=== PATIENT | female | born 1990 | race Caucasian/White ===

== ENCOUNTER 2016-08-23 11:41 | Emergency (ER) | payer SELFPAY ==
[2016-08-23 12:14] LABS: BASOPHILS 0.4 % (0.0-2.0); EOSINOPHILS 0.8 % (0.0-6.0); EOSINOPHILS# 0.1 X 10^3uL (0.0-0.4); HEMATOCRIT 44.8 % (36.0-48.0); HEMOGLOBIN 15.4 g/dL (12.0-16.0); LYMPHOCYTES 20.9 % (20.0-40.0); LYMPHOCYTES# 1.5 X 10^3uL (0.8-3.8); MEAN CELL VOLUME 88.9 fL (80.0-100.0); MEAN CORPUS. HGB CONCENTRATION 34.5 g/dL (32.0-36.0); MEAN CORPUSCULAR HEMOGLOBIN 30.6 pg (29.0-35.0); MEAN PLATELET VOLUME 6.8 fL (7.4-10.4); MONOCYTES# 0.3 X 10^3uL (0.2-1.0); NEUTROPHILS 73.9 % (54.0-75.0); NEUTROPHILS# 5.3 X 10^3uL (2.6-6.7); PLATELET COUNT 295 X 10^3uL (130-440); RED BLOOD COUNT 5.04 X 10^6uL (4.20-6.10); RED CELL DISTRIBUTION WIDTH 11.7 % (11.5-14.5); WHITE BLOOD COUNT 7.2 X 10^3uL (3.9-10.7)
[2016-08-23 12:25] LABS: BLOOD UREA NITROGEN 7 mg/dL (7-17); CALCIUM 9.8 mg/dL (8.4-10.2); CHLORIDE 103 mmol/L (98-107); EST GLOMERULAR FILTRATION RATE > 60 mL/min; GLUCOSE 108 mg/dL (70-100); MAGNESIUM 2.2 mg/dL (1.6-2.3); SODIUM 143 mmol/L (137-145)
--- NOTE | 2016-08-23 12:27 | CT REPORT ---
HISTORY: History of seizure. COMPARISON: None. TECHNIQUE: Axial non-contrast images obtained from skull vertex through foramen magnum. Dose reduction technique was utilized. FINDINGS: There is no atrophy. There is no hemorrhage. There is no hydrocephalus. No mass lesion is identifi ed. Araiza white differentiation adequate, there is no infarction. No midline shift is identified. T he paranasal sinuses are clear. IMPRESSION: Normal head CT. Final Electronic Signature: This report was electronically signed by Mart Avalos MD, FACR on 2016 12:24 PM. iqra /
[2016-08-23 12:35] LABS: ETHYL ALCOHOL < 10 mg/dL (<10)
[2016-08-23] MEDS ORDERED: LEVETIRACETAM 500 MG TABLET PO ONE (13:15)
--- NOTE | 2016-08-23 13:16 | ER NURSING DOCUMENTATION ---
Nurse's Notes [facility] Name:Regine Guerrero Age:26 yrs Sex:Female :1990 Arrival Date:08/23/2016 Time:11:41 Bed6 Private MD: Diagnosis:New Onset Seizure Presentation: 08/23 11:43 Acuity: TANNER 3 rh 11:50 Presenting complaint: Presenting complaint: Patient states: PT states she had two rh seizures this AM first at 0930 and again at 1030 am. Both episodes were quick, lasting 30 or so seconds. Pt was confused after each event. Pt's witnessed the events. 12:09 Transition of care: Home. rh 12:09 Method Of Arrival: Private Vehicle Triage Assessment: 12:11 General: Appears in no apparent distress, Behavior is cooperative. Pain: Denies pain. rh EENT: Oral mucosa is dry. Neuro: Level of Consciousness is awake, alert, obeys commands, Oriented to person, place, time, event, Auto Body Repair Technician are equal bilaterally. Neuro: Seizure activity reported prior to arrival. Seizure lasted approximately 1 minutes. Cardiovascular: Capillary refill < 3 seconds Chest pain is denied. Respiratory: Airway is patent. GI: Denies nausea. : No deficits noted. Derm: Skin is intact, is healthy with good turgor, Skin is pink, warm & dry. Historical: - Allergies: SULFA (SULFONAMIDES); - Home Meds: 1. None - PMHx: None; - PSHx: None; - Tetanus: < 10 years. - Ebola Screening: : Patient negative for fever greater than or equal to 101.5 degrees Fahrenheit, and additional compatible Ebola Virus Disease symptoms. - Immunization history: Flu Vaccine None. - Social history: Smoking status: Patient states was never smoker of tobacco. Patient uses marijuana. Screenin:12 Infectious Disease Risk None. Abuse screen: Denies threats or abuse. Denies injuries rh from another. Nutritional screening: No deficits noted. Assessment: 12:12 See Triage Assessment done by same RN. rh Vital Signs: 11:50 BP 133 / 85; Pulse 98; Resp 16; Temp 98.0(O); Pulse Ox 97% on R/A; Weight 70.76 kg; rh Height 5 ft. 6 in. (167.64 cm); Pain 0/10; 12:30 BP 129 / 90; Pulse 92; Resp 14; Pulse Ox 96% on R/A; Pain 0/10; rh 13:14 BP 119 / 84; Pulse 89; Resp 15; Pulse Ox 98% on R/A; Pain 0/10; rh 11:50 Body Mass Index 25.18 (70.76 kg, 167.64 cm) ED Course: 11:42 Patient arrived in ED. 11:43 Stacey Chilel is Primary Nurse. 11:43 Triage completed. 11:51 Yifan Elias MD is Attending Physician. kendell 11:55 Notified ED Physician of patient's arrival and chief complaint. Dr. Elias notified. rh 12:00 Inserted peripheral IV: 20 gauge in right antecubital area and blood collected. rh 12:[address] dnn 12:12 Valuables Remains with patient Patient has correct armband on for positive rh identification. Bed in low position. Call light in reach. Side rails up X2. Seizure precautions initiated. close monitoring by staff. 12:19 Patient moved back from CT. dnn Administered Medications: 12:10 Drug: NS 0.9% 1000 ml; Route: IV; Rate: bolus; Site: right antecubital; rh 13:00 Follow up: IV Status: Completed infusion; IV Intake: 1000ml 13:03 Drug: Keppra 500 mg; Route: PO; la 13:07 Follow up: Response: No adverse reaction la Intake: 13:00 IV: 1000ml; Total: 1000ml. Outcome: 13:00 Discharge ordered by . 13:14 Discharged to home ambulatory, with significant other. 13:14 Condition: improved 13:14 Discharge Assessment: Patient awake, alert and oriented x 3. No cognitive and/or functional deficits noted. Patient verbalized understanding of disposition instructions. 13:14 Discharge instructions given to patient, significant other, Instructed on discharge instructions, follow up and referral plans. medication usage, Demonstrated understanding of instructions, medications, Prescriptions given X 1. 13:14 IV D/Saeid 13:15 Patient left the ED. Signatures: Yifan Elias MD MD jm Norman, David dnn Alexander, Linda la Hofsess, Rachel Sole Rahman
--- NOTE | 2016-08-23 13:16 | ER PHYSICIAN DOCUMENTATION ---
Physician Documentation [facility], [place] Name:Regine Guerrero Age:26 yrs Sex:Female :1990 Arrival Date:08/23/2016 Time:11:41 Bed6 Private MD: Yifan Brower Disposition: 08/23/16 13:00 Discharged to Home/Self Care. Impression: New Onset Seizure. - Condition is Good. - Discharge Instructions: SEIZURE, New Onset, Unk Cause [Adult]. - Prescriptions for Keppra 500 mg Oral - take 1 tablet by ORAL route every 12 hours; 30 tablet. - Medical Reconciliation form form. - Follow up: Private Physician; When: 1 week; Reason: Continuance of care. - Problem is new. - Symptoms have improved. HPI: 08/23 13:09 This 26 yrs old Female presents to ER via Private Vehicle with complaints of jm Seizure. 13:09 The patient presents with a history of multiple seizures, a total of 2, that last 30 jm second(s). Character of seizure(s): Motor activity: generalized, Eye movements: during the seizure the eyes were fixed in one direction, back. Seizure onset: just prior to arrival, this morning. Context: the seizure(s) was witnessed, by family. Seizure Hx: the patient has no previous seizure history. Associated injury: The patient did not suffer any apparent associated injury. The patient has not experienced similar symptoms in the past. Pt here for sz. Pt had a sz this AM that lasted 30 seconds. Pt was shaking w repative actions and eyes rolled back. Pt then had another that was similar. Pt's never had one before. Pt + for THC use, but otherwise no drugs. . Historical: - Allergies: SULFA (SULFONAMIDES); - Home Meds: 1. None - PMHx: None; - PSHx: None; - Tetanus: < 10 years. - Ebola Screening: : Patient negative for fever greater than or equal to 101.5 degrees Fahrenheit, and additional compatible Ebola Virus Disease symptoms. - Immunization history: Flu Vaccine None. - Social history: Smoking status: Patient states was never smoker of tobacco. Patient uses marijuana. ROS: 13:13 Constitutional: Negative for fatigue, fever. jm 13:13 Eyes: Negative for blurry vision. 13:13 ENT: Negative for rhinorrhea, sinus congestion, sinus pain, sore throat. 13:13 Respiratory: Negative for cough, shortness of breath. 13:13 Abdomen/GI: Negative for abdominal pain, nausea, vomiting, diarrhea. 13:13 Neuro: Positive for seizure activity, Negative for dizziness. Exam: 13:13 Constitutional: The patient appears alert, awake. jm 13:13 Eyes: Periorbital structures: appear normal, Pupils: equal, round, and reactive to light and accomodation. 13:13 ENT: Nose: is normal, Mouth: is normal. 13:13 Neck: Thyroid: appears normal, Trachea: is midline with no obvious abnormalities. 13:13 Cardiovascular: Rate: normal, Rhythm: regular. 13:13 Respiratory: Respirations: normal, Breath sounds: are normal. 13:13 Abdomen/GI: Bowel sounds: normal, Palpation: abdomen is soft and non-tender. 13:13 Musculoskeletal/extremity: Extremities: grossly normal except: Sensation intact. 13:13 Skin: injury, is not appreciated, no rash present. 13:13 Neuro: Mentation: is normal, Memory: is normal. 13:13 Psych: Behavior/mood is pleasant, cooperative, Affect is calm. Vital Signs: 11:50 BP 133 / 85; Pulse 98; Resp 16; Temp 98.0(O); Pulse Ox 97% on R/A; Weight 70.76 kg; rh Height 5 ft. 6 in. (167.64 cm); Pain 0/10; 12:30 BP 129 / 90; Pulse 92; Resp 14; Pulse Ox 96% on R/A; Pain 0/10; rh 13:14 BP 119 / 84; Pulse 89; Resp 15; Pulse Ox 98% on R/A; Pain 0/10; rh 11:50 Body Mass Index 25.18 (70.76 kg, 167.64 cm) rh MDM: 11:51 Patient medically screened. 13:22 Differential diagnosis: seizure. Data reviewed: vital signs, nurses notes, lab test result(s), radiologic studies, and as a result, I will discharge patient. Counseling: I had a detailed discussion with the patient and/or guardian regarding: the historical points, exam findings, and any diagnostic results supporting the discharge/admit diagnosis, lab results, the need for outpatient follow up, with the patient's primary care provider, a neurologist. ED course: CT negative. Pt w probable sz. Will dc w keppra. Pt feels confident she can get MRI/EEG as outpt back in [place]. . 08/23 12:29 Order name: CBC AUTO DIF, MDIF/RMOR IF IND; Complete Time: 12:59 EDMS 08/23 12:33 Order name: HCG, SERUM; Complete Time: 12:59 EDMS 08/23 12:36 Order name: BASIC METABOLIC PANEL; Complete Time: 12:59 EDMS 08/23 12:36 Order name: MAGNESIUM; Complete Time: 12:59 EDMS 08/23 12:36 Order name: ETHYL ALCOHOL; Complete Time: 12:59 EDMS 08/23 12:28 Order name: CAT SCAN; HEAD W/O CON [id number]; Complete Time: 12:59 EDNM 08/23 11:52 Order name: Iv Saline Lock; Complete Time: 12:07 08/23 11:52 Order name: Pulse Ox Continuous; Complete Time: 12:07 08/23 11:52 Order name: Seizure Precautions; Complete Time: 12:07 Dispensed Medications: 12:10 Drug: NS 0.9% 1000 ml; Route: IV; Rate: bolus; Site: right antecubital; rh 13:00 Follow up: IV Status: Completed infusion; IV Intake: 1000ml rh 13:03 Drug: Keppra 500 mg; Route: PO; la 13:07 Follow up: Response: No adverse reaction la Signatures: Yifan Elias MD MD jm Alexander, Linda la Hofsess, Rachel
== END 2016-08-23 13:16 | disposition home or self-care (01) ==
LOC: ER 11:41
DX: R56.9 Unspecified convulsions (principal)
CPT/HCPCS: 70450; 80048; 80320; 83735; 84703; 85025; 96360; 99284